=== PATIENT | female | born 1955 | race African-American/Black ===

== ENCOUNTER 2016-12-21 09:19 | Day surgery (SDC) | payer OTHER ==
[2016-12-21] MEDS ORDERED: ONDANSETRON HCL INJ/PF 4 MG/2 ML SDV ONE (10:06)
[2016-12-21] MEDS ORDERED: GLYCOPYRROLATE INJ 0.4 MG/2 ML VIAL ONE (10:06)
[2016-12-21] MEDS ORDERED: NALOXONE HCL INJ/PF 0.4 MG/1 ML SDV ONE (10:06)
[2016-12-21] MEDS ORDERED: MIDAZOLAM 2 MG/2 ML INJ ONE ×2 (10:07)
[2016-12-21] MEDS ORDERED: FLUMAZENIL INJ 0.5 MG/5 ML VIAL IV ONE (10:07)
[2016-12-21] MEDS ORDERED: FENTANYL CITRATE INJ/PF 100 MCG/2 ML AMPUL ONE (10:07)
[2016-12-21] MEDS ORDERED: EPINEPHRINE INJ 1 MG/10 ML DISP.SYRIN ONE (10:08)
[2016-12-21 11:43] VITALS: BP 109/74
[2016-12-21 11:48] LABS: ABSOLUTE BASOPHILS # (AUTO) 0.1 10^3/uL (0.0-0.2); ABSOLUTE EOSINOPHILS # (AUTO) 0.1 10^3/uL (0.0-0.6); ABSOLUTE LYMPHOCYTES (AUTO) 2.3 10^3/uL (0.5-4.7); ABSOLUTE MONOCYTES (AUTO) 0.7 10^3/uL (0.1-1.4); ABSOLUTE NEUT (AUTO) 7.5 10^3/uL (1.7-8.2); BASOPHILS % (AUTO) 0.5 % (0-2); EOSINOPHILS % (AUTO) 1.2 % (0-6); HEMATOCRIT 31.8 % (36.0-47.0); HEMOGLOBIN 10.2 g/dL (12.0-15.5); HGB HCT DIFFERENCE -1.2; LYMPHOCYTES % (AUTO) 21.1 % (13-45); MEAN CORPUSCULAR HGB CONC 31.9 g/dL (32.0-36.0); MEAN CORPUSCULAR VOLUME 82 fl (80-97); MONOCYTES % (AUTO) 6.6 % (3-13); RED CELL DISTRIBUTION WIDTH 15.2 % (11.5-14.0); SEGMENTED NEUTROPHILS % (AUTO) 70.6 % (42-78); WHITE BLOOD COUNT 10.7 10^3/uL (4.0-10.5)
[2016-12-21 12:13] LABS: ALANINE AMINOTRANSFERASE 29 U/L (9-52); ALBUMIN 3.8 g/dL (3.5-5.0); ALKALINE PHOSPHATASE 75 U/L (38-126); AMYLASE 54 U/L (30-110); ANION GAP 11 (5-19); ASPARTATE AMINO TRANSFERASE 20 U/L (14-36); BILIRUBIN,DIRECT 0.2 mg/dL (0.0-0.4); BILIRUBIN,TOTAL 0.4 mg/dL (0.2-1.3); BLOOD UREA NITROGEN 11 mg/dL (7-20); CALCIUM 9.2 mg/dL (8.4-10.2); CARBON DIOXIDE 26 mmol/L (22-30); CHLORIDE 105 mmol/L (98-107); CREATININE RESULT 0.59 mg/dL (0.52-1.25); GLUCOSE 85 mg/dL (75-110); LIPASE 147.7 U/L (23-300); POTASSIUM 4.2 mmol/L (3.6-5.0); SODIUM 142.1 mmol/L (137-145); TOTAL PROTEIN 6.7 g/dL (6.3-8.2)
--- NOTE | 2016-12-21 13:53 | OPERATIVE REPORT E ---
Operative Report NAME: LILY HERNANDEZ : 1955 AGE: 61Y DATE OF SURGERY: 12/21/2016 ROOM: PREOPERATIVE DIAGNOSES: 1. Dysphagia. 2. Abdominal pain. POSTOPERATIVE DIAGNOSES: 1. Esophagitis, mild. 2. Gastritis, mild. 3. Duodenitis, mild. SURGEON: EAN REYNOLDS M.D. PROCEDURES: 1. Esophagoscopy. 2. Gastroscopy. 3. Duodenoscopy. TISSUE REMOVED OR ALTERED: None. ANESTHESIA: 1. Versed 4 mg. 2. Fentanyl 50 mcg. DESCRIPTION OF PROCEDURE: Baby scope passed under guided vision. No difficulty. ESOPHAGOSCOPY: Junction at 35. No stricture. Mild esophagitis. The patient has strong gag reflex, she was burping and gagging during the procedure, was slightly difficult, this continued burping and gagging in spite of adequate sedation. GASTROSCOPY: No ulcers. Mild gastritis. DUODENOSCOPY: No ulcers. Mild duodenitis. CONCLUSION: 1. Mild esophagitis with gastroesophageal junction at 35. 2. Mild gastritis. 3. Mild duodenitis. PLAN: 1. Assurance. 2. Continue present management. 3. Patient to see us in the office in the next few days. 4. Will obtain CBC, chem profile, amylase, lipase. DICTATING PHYSICIAN: AEN REYNOLDS M.D. [id number] PHY#: [id number] ID: [id number] JOB#: [id number] ACCT: [id number] cc:[facility] EAN REYNOLDS M.D. >
--- NOTE | 2016-12-22 13:00 | DISCHARGE SUMMARY E ---
Discharge Summary NAME: LILY HERNANDEZ : 1955 AGE: 61Y ADMITTED: 12/21/2016 DISCHARGED: 12/21/2016 PROCEDURE: EGD. HISTORY OF PRESENT ILLNESS: A 61-year-old female presented with dysphagia and abdominal pain. Upper scope shows no ulcers. She did have mild esophagitis, mild gastritis, mild duodenitis. DISCHARGE PLAN: We will obtain lab studies. Consider barium swallow. Patient takes Mobic, Boniva, and metformin. CONCLUSION: No ulcer. No stricture. Dysphagia, etiology undetermined. Abdominal pain. DICTATING PHYSICIAN: EAN REYNOLDS M.D. [id number] Y#: [id number] ID: [id number] JOB#: [id number] ACCT: [id number] cc:[facility] CLAUDIA EAN REYNOLDS M.D. >
== END 2016-12-21 11:50 | disposition home or self-care (01) ==
LOC: END 09:19
PROVIDERS: ATTEND Specialist
PROC: 0DJ08ZZ Inspection of Upper Intestinal Tract, Via Natural or Artificial Opening Endoscopic (ICD-10-PCS; principal; 2016-12-21 10:00)
DX: K21.0 Gastro-esophageal reflux disease with esophagitis (principal); K29.70 Gastritis, unspecified, without bleeding; K29.80 Duodenitis without bleeding; I10 Essential (primary) hypertension; E78.00 Pure hypercholesterolemia, unspecified; E11.9 Type 2 diabetes mellitus without complications; Z79.84 Long term (current) use of oral hypoglycemic drugs; Z79.1 Long term (current) use of non-steroidal anti-inflammatories (NSAID); Z79.899 Other long term (current) drug therapy
CPT/HCPCS: 43235; 36415; 82962; 82150; 83690; 85025; 80053; J2250; J0171; J3010; J2405; J2310; J3490

== ENCOUNTER → 2017-11-14 | Outpatient (CLI) | payer OTHER ==
--- NOTE | 2017-11-14 12:44 | RADIOLOGY REPORT (SQ) ---
EXAM DESCRIPTION: NM GASTRIC EMPTYING STUDY COMPLETED DATE/TIME: 11/14/2017 12:15 pm REASON FOR STUDY: EPIGASTRIC PAIN R10.13 EPIGASTRIC PAIN COMPARISON: None. RADIONUCLIDE AND DOSE: 2.1 millicuries Tc-99m Sulfur Colloid. The route of agent administration: Oral. TECHNIQUE: Serial images acquired to 4 hours with each image recorded over a 30 minute time frame. I mage intensity values plotted with respect to time with linear regression algorithm. LIMITATIONS: None. FINDINGS: Patient was observed for 4 hours. Gastric emptying at 60 minutes was 21%. Gastric emptying at 90 minutes was 31%. Gastric emptying at 120 minutes was 42% Gastric emptying at 240 minutes was 84%. IMPRESSION: Decreased gastric emptying. TECHNICAL DOCUMENTATION: JOB ID: [id number] [employer]- All Rights Reserved Reading location - IP/workstation name: [email or web address]
== END ==
LOC: RAD 07:42
PROVIDERS: ATTEND Internal Medicine Gastroenterology
DX: R10.13 Epigastric pain (principal)
CPT/HCPCS: 78264; A9541